=== PATIENT | female | born 1980 | race Caucasian/White ===

== ENCOUNTER → 2016-11-20 | Outpatient (CLI) | payer BC | LOC: LAB 16:39 | PROVIDERS: ATTEND Physician Assistant | DX: G35 Multiple sclerosis (principal); R53.82 Chronic fatigue, unspecified; R89.9 Unspecified abnormal finding in specimens from other organs, systems and tissues | CPT/HCPCS: 36415; 86147 ==

== ENCOUNTER → 2016-11-24 | Outpatient (CLI) | payer BC ==
[2016-11-24 15:59] LABS: BASOPHILS # (AUTO) 0.02 10*3/UL; BASOPHILS % (AUTO) 0.3 % (0-1); EOSINOPHILS % (AUTO) 0.6 % (0-8); HEMATOCRIT 40.7 % (37.0-47.0); IMM GRAN % (AUTO) 0.3 % (0-5); IMM GRAN# (AUTO) 0.02 10*3/UL; LYMPHOCYTES # (AUTO) 0.49 10*3/uL; LYMPHOCYTES % (AUTO) 6.2 % (10-50); MEAN CORPUSCULAR HEMOGLOBIN 31.5 PG (27-31); MEAN CORPUSCULAR HGB CONC 34.4 g/dL (33-37); MEAN PLATELET VOLUME 9.7 FL (7.4-12.2); MONOCYTES # (AUTO) 0.78 10*3/UL (0.3-0.8); MONOCYTES % (AUTO) 9.9 % (5-15); NEUTROPHILS # (AUTO) 6.55 10*3/UL; NEUTROPHILS % (AUTO) 82.7 % (50-80); RDW COEFFICIENT OF VARIATION 13.1 % (11.5-14.5); RED BLOOD COUNT 4.45 10^6/uL (4.20-5.40); WHITE BLOOD COUNT 7.91 10^3/uL (4.8-10.8)
[2016-11-24 16:02] LABS: BILIRUBIN,URINE NEGATIVE (NEG); CLARITY,URINE Slightly Clo (CLEAR); GLUCOSE, URINE (UA) NEGATIVE (NEG); LEUKOCYTE ESTERASE ,URINE SMALL (NEG); NITRATE,URINE NEGATIVE (NEG); OCCULT BLOOD,URINE NEGATIVE (NEG); PROTEIN,URINE NEGATIVE (NEG); UROBILINOGEN,URINE 0.2 mg/dL (0.2)
[2016-11-24 16:06] LABS: URINE SAMPLE TYPE VOIDED SPECIMEN
[2016-11-24 16:07] LABS: BACTERIA,URINE MANY; SQUAMOUS EPITHELIAL CELL,UR FEW
[2016-11-24 16:15] LABS: PLATELET MORPHOLOGY COMMENT NORMAL MORPHOLOGY (NORM)
== END ==
LOC: LAB 12:24
PROVIDERS: ATTEND Physician Assistant
DX: G35 Multiple sclerosis (principal)
CPT/HCPCS: 36415; 81001; 85025

== ENCOUNTER 2016-12-21 07:05 | Emergency (ER) | payer BC ==
[2016-12-21 07:38] VITALS: RESP 14; TEMP 97
[2016-12-21 07:39] LABS: BASOPHILS # (AUTO) 0.01 10*3/UL; BASOPHILS % (AUTO) 0.1 % (0-1); EOSINOPHILS % (AUTO) 0.2 % (0-8); HEMATOCRIT 40.3 % (37.0-47.0); HEMOGLOBIN 13.9 g/dL (12.0-16.0); IMM GRAN % (AUTO) 0.7 % (0-5); IMM GRAN# (AUTO) 0.08 10*3/UL; LYMPHOCYTES # (AUTO) 0.31 10*3/uL; LYMPHOCYTES % (AUTO) 2.8 % (10-50); MEAN CORPUSCULAR HEMOGLOBIN 32.7 PG (27-31); MEAN CORPUSCULAR HGB CONC 34.5 g/dL (33-37); MEAN PLATELET VOLUME 8.7 FL (7.4-12.2); MONOCYTES # (AUTO) 0.63 10*3/UL (0.3-0.8); MONOCYTES % (AUTO) 5.6 % (5-15); NEUTROPHILS # (AUTO) 10.15 10*3/UL; NEUTROPHILS % (AUTO) 90.6 % (50-80); RED BLOOD COUNT 4.25 10^6/uL (4.20-5.40)
[2016-12-21 07:53] LABS: PROTHROMBIN TIME 9.6 secs (9.7-11.4)
[2016-12-21 07:56] LABS: ASPARTATE AMINO TRANSFERASE 23 IU/L (8-39); BILIRUBIN,TOTAL 0.7 mg/dL (0.3-1.2); BLOOD UREA NITROGEN 12 mg/dL (7-22); CALCIUM 9.4 mg/dL (8.7-10.7); CHLORIDE 102 meq/L (98-112); CREATININE 0.6 mg/dL (0.50-1.20); EST GLOMERULAR FILTRATION > 60 (>60 ml/min/1.73m(2)); GLUCOSE 101 mg/dL (78-110); POTASSIUM 3.7 meq/L (3.8-5.2); SODIUM 139 meq/L (135-145); TOTAL PROTEIN 7.1 g/dL (6.1-8.0)
[2016-12-21 07:57] LABS: PLATELET MORPHOLOGY COMMENT NORMAL MORPHOLOGY (NORM)
--- NOTE | 2016-12-21 08:18 | PDOC ---
Lower Extremity Problem HPI - General Chief Complaint: Integumentary Stated Complaint: painful/tender, bruises to b/l arms/legs, no injur Date Seen by Provider: 12/21/16 Time Seen by Provider: 07:10 Source: POSITIVE: Patient Exam Limitations: POSITIVE: No limitations Nurse's Notes Reviewed & Considered: Yes - History of Present Illness Initial Comments: The patient is a 36-year-old female who presents to the emergency department with left calf pain. She states for the past several days she's had pain in her left calf which is worse when she is up and walking. She also has noticed some increased swelling in her left leg. This morning she also noted several bruises to the left side of her thigh as well as some bruises on her arms. She denies any recent injury. She does have a history of MS and is currently on a prednisone taper which has been ongoing for the past 5 weeks. She denies any prior history of blood clots and is not taking any blood thinner medications. She denies any chest pain. - Patient Home Medications Home Medications: Home Medications Albuterol Sulfate [Proair Hfa] 2 puff INH Q4-6H #1 inh 11/22/15 Gabapentin 300 mg PO TID 06/02/16 Nortriptyline Cap [Pamelor Cap] 75 mg PO DAILY 06/02/16 Cholecalciferol (Vitamin D3) [Vitamin D3] 1 cap PO DAILY cap 09/15/16 Cyanocobalamin (Vitamin B-12) [Vitamin B12] 2,500 mcg PO DAILY tab 09/15/16 Fingolimod HCl [Gilenya] 0.5 mg PO DAILY cap 09/15/16 Ketorolac Tromethamine [Sprix] 1 each NS PRN PRN spray 09/15/16 Sumatriptan 5 mg IN PRN PRN spr 09/15/16 Dexamethasone 2 mg PO DAILY 12/21/16 Fish Oil/Om-3/Dl-E/FA/B6-B12 [Cardiovid Plus Softgel] 1 cap PO DAILY 12/21/16 Flaxseed Oil [Flax Seed Oil] 1,000 mg PO DAILY 12/21/16 Methylphenidate HCl 5 mg PO BID 12/21/16 Pantoprazole Sodium 40 mg PO DAILY 12/21/16 - Patient Allergies Allergies/Adverse Reactions: Allergies Allergy/AdvReac Type Severity Reaction Status Date / Time BROMATINE Allergy Severe SHORTNESS Uncoded 12/21/16 07:17 OF BREATH Reglan AdvReac Intermediate ITCHING Uncoded 12/21/16 07:17 Past Medical History - heen HEENT History: Denies History Additional HEENT History: near sighted, wears glasses Cardiovascular History: Denies History Respiratory History: Other (please comment) Additional Respiratory History: "ASTHMATIC BRONCHITIS" Gastrointestinal History: Irritable Bowel Syndrome Genitourinary History: Kidney Stones Additional Genitourinary History: 3 YEARS AGO Endocrine History: Denies History Musculoskeletal History: Fibromyalgia, Back Pain, Joint Pain Prosthesis or Implant: Yes (L-4-L5) Additional Musculoskeletal History: COMPLEX REGIONAL PAIN SYNDROME Neurological History: Migraines, Motion Sickness Blood Disorders: Denies History Psychiatric History: Denies History History of Sexually Transmitted Diseases: No Female Reproductive History: Denies History Additional Female Reproductive History: TUBAL LIGATION Cancer History: Skin Cancer Treatment / Date(s) of Treatment: SURG REMOVAL In Past Year Been Physically Harmed or Verbally Threatened: No History of MDRO: No History of Other Communicable Diseases: No Tobacco Use: Never Smoker Alcohol Use: Occasionally Substance Use Type: None Previous Surgical History: Yes Type / Date of Surgery: TONSILLECTOMY. L4-L5 FUSION. TUBAL, ABLATION. WISDOM TEETH. R ANKLE Anesthesia Reactions: Yes (PONV) Malignant Hyperthermia: No Significant Family History: No pertinent family hx Past Medical History Reviewed: Reviewed - No Changes ROS - Limitations ROS Limitations: No Limitations Constitution: DENIES: Chills, Fever Cardiovascular: DENIES: Chest Pain, Heart Palpitations Respiratory: REPORTS: Shortness Of Breath, Other (Has a history of asthma) Musculoskeletal: REPORTS: Calf Pain (Left-sided) Lower Ext Problem Exam - General Appearance General Appearance: POSITIVE: Alert, Cooperative, No Acute Distress - Extremities Lower Extremity: POSITIVE: Other (Examination of the left lower extremity reveals tenderness to the calf with positive Homans sign, she does have some small bruises noted to the lateral aspect of her thigh on the left leg, small bruises noted to the arms as well) Vascular: POSITIVE: No Vascular Compromise - Neuro / Psych Neuro/Psych: POSITIVE: Sensation Normal, Motor Normal - Skin Skin: POSITIVE: Other (Some petechial-appearing rashes some both shins) - HEENT HEENT: POSITIVE: Head Inspection Nml - Respiratory / CVS Respiratory / CVS: POSITIVE: No Respiratory Distress, Breath Sounds Normal, Regular Rate/Rhythm, Heart Sounds Normal Lower Ext Problem Progress - Results Reviewed by me Xrays/CTs/US Reviewed by me: Yes Radiology Findings: Ultrasound of the left lower extremity is negative for DVT, there is a fluid collection in the popliteal region consistent with Rojas's cyst. Lab Results Reviewed: Yes Lab Results:: Laboratory Results 12/21/16 Range/Units 07:34 WBC 11.20 H (4.8-10.8) 10^3/uL RBC 4.25 (4.20-5.40) 10^6/uL Hgb 13.9 (12.0-16.0) g/dL Hct 40.3 (37.0-47.0) % MCV 94.8 (81-99) FL MCH 32.7 H (27-31) PG MCHC 34.5 (33-37) g/dL RDW Std Deviation 46.9 (39-50) fL RDW Coeff of Maddie 14.0 (11.5-14.5) % Plt Count 182 (140-350) 10*3/uL MPV 8.7 (7.4-12.2) FL Immature Gran % (Auto) 0.7 (0-5) % Neut % (Auto) 90.6 H (50-80) % Lymph % (Auto) 2.8 L (10-50) % [place] % (Auto) 5.6 (5-15) % Eos % (Auto) 0.2 (0-8) % Baso % (Auto) 0.1 (0-1) % Immature Gran # (Auto) 0.08 10*3/UL Neut # (Auto) 10.15 10*3/UL Lymph # (Auto) 0.31 10*3/uL [place] # (Auto) 0.63 (0.3-0.8) 10*3/UL Eos # (Auto) 0.02 10*3/UL Baso # (Auto) 0.01 10*3/UL WBC Morphology Comment Normal morphology (NORM) Plt Morphology Comment Normal morphology (NORM) RBC Morph Comment Normal morphology (NORM) PT 9.6 L (9.7-11.4) secs INR 0.93 (0.00-5.90) N/A APTT 26.5 (22.6-31.3) SECS Sodium 139 (135-145) meq/L Potassium 3.7 L (3.8-5.2) meq/L Chloride 102 (98-112) meq/L Carbon Dioxide 27 (23-33) meq/L Anion Gap 10 (5-20) BUN 12 (7-22) mg/dL Creatinine 0.6 (0.50-1.20) mg/dL Estimated GFR > 60 (>60 ml/min/1.73m(2)) BUN/Creatinine Ratio 20.00 (6-20) Glucose 101 (78-110) mg/dL Calculated Osmolality 287.0 (267-292) mOsm/kg Calcium 9.4 (8.7-10.7) mg/dL Total Bilirubin 0.7 (0.3-1.2) mg/dL AST 23 (8-39) IU/L ALT 92 H (9-52) IU/L Alkaline Phosphatase 44 (38-126) IU/L Total Protein 7.1 (6.1-8.0) g/dL Albumin 4.0 (3.5-4.8) g/dL Globulin 3.0 (2.50-4.10) g/dL Albumin/Globulin Ratio 1.30 (1.3-2.0) mg/g - Patient's Progress MDM / ED Course: Her ultrasound is negative for DVT however does reveal evidence of a Rojas's cyst which is the likely cause of her left calf pain and swelling. Her blood work was also reassuring with normal platelets, coagulation factors and unremarkable blood work otherwise. The bruising that she is experiencing is likely secondary to her recent course of prednisone. The pain appears to be related to a Rojas's cyst rather than DVT. She was advised to try ibuprofen 4- 600 mg as needed for pain/swelling. She will take this with food. She is advised follow-up with orthopedic surgery if continued pain or swelling. She will return to the emergency room if any worsening or change in symptoms. - Consult Counseled: POSITIVE: Patient, RE: Lab Results, RE: Radiology Results, RE: DX, RE : Need for F/U Patient Care Time - Estimated PCT Patient Care Time (In Minutes): 20 Vital Signs - Recent Vital Signs Vital Signs: Vital Signs (Last 8 hours) Temp Pulse Resp BP Pulse Ox 12/21/16 07:05 97.0 F 86 14 142/88 99 - VS Reviewed Vital Signs Reviewed: Yes Discharge Clinical Impression: Bakers cyst Condition: Stable Patient Instructions Given at Discharge: Bakers Cyst (ED) Additional Instructions: The ultrasound of your left leg did not reveal any evidence of blood clot. There was however a fluid collection in the upper calf behind the knee consistent with a Rojas's cyst. This is the likely cause of your pain and swelling. Recommend ibuprofen 4-600 mg every 6 hours as needed for pain/ swelling. Take this with food. Your blood work revealed normal blood counts and coagulation factors. The bruising that you are experiencing is likely related to the recent prednisone course. Return to the emergency room if any worsening or change in symptoms. Recommend follow-up with orthopedic surgery regarding the Rojas's cyst if continued pain or swelling. Follow Up With: DENILSON GALDAMEZ [Primary Care Provider] -
--- NOTE | 2016-12-21 09:16 | DI ---
US UP/LOW EXT VEINS U/L OR LTD,12/21/2016 7:21 AM: Clinical History: Left calf pain. Previous Exam: None at this facility. Findings: Multiple grayscale and color Doppler sonographic images are obtained of the veins of the left lower e xtremity demonstrating complete coaptation upon graded compression throughout. There is no evidence o f echogenic thrombus. There is normal venous waveforms with normal respiratory variation and augmenta tion. There is a Rojas's cyst noted within the posterior knee. Impression: No evidence of deep venous thrombosis. 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
== END 2016-12-21 08:46 | disposition home or self-care (01) ==
LOC: ER 07:05
DX: M71.22 Synovial cyst of popliteal space [Baker], left knee (principal); G35 Multiple sclerosis
CPT/HCPCS: 36415; 80053; 85025; 85610; 85730; 93971; 99283

== ENCOUNTER → 2016-12-21 | Outpatient (CLI) | payer BC ==
--- NOTE | 2016-12-21 19:10 | DI ---
MRI BRAIN W/WO CN,12/21/2016 12:52 PM: Clinical History: Multiple sclerosis. Previous Exam: July 15, 2016. Findings: Multiplanar MR images are obtained through the brain following an MS protocol with and without gadoli nium contrast. Ventricles and other CSF containing spaces are normal and symmetric. There is no abnormal enhancement . The intraorbital structures are unremarkable. The paranasal sinuses are also unremarkable. There are multiple areas of increased FLAIR and T2 signal in the pericallosal regions in a flamelike configuration. There is also some increased T2 and FLAIR signal involving the body of the corpus call osum as well. These areas were only imaged on FLAIR images on the prior exam. The areas of increased FLAIR signal on today's exam are stable when. Prior exam although technique differences exist which m akes direct comparison somewhat difficult. There is also a large lesion involving the medulla oblonga ta anteriorly. This demonstrated increased FLAIR on the prior exam and also today. There is no enhancing mass and there is no enhancement of these FLAIR hyperintensities. There is no abnormally restricted diffusion. Impression: Multiple areas of increased FLAIR and T2 signal predominantly in the pericallosal white matter with a large lesion in the medulla oblongata without any enhancement to suggest active plaque formation.
== END ==
LOC: MRI 12:47
PROVIDERS: ATTEND Physician Assistant
DX: G35 Multiple sclerosis (principal); R20.0 Anesthesia of skin
CPT/HCPCS: 70553; A9579

== ENCOUNTER → 2016-12-23 | Outpatient (CLI) | payer BC ==
[~2016-12-23] MED LIST: LIDOCAINE W/ SODIUM BICARB 0.5 ML SYR SUBD ONE; NORMAL SALINE 10 ML SYRINGE FLUSH IVP ONE
--- NOTE | 2016-12-23 20:42 | DI ---
MRI CERVICAL SPINE W/WO CN,12/23/2016 12:14 PM: Clinical History: Arm and hand numbness and history of MS. Previous Exam: July 24, 2016 Findings: Multiplanar MR images are obtained through the cervical spine both before and after the intravenous a dministration of 20 mL of gadolinium contrast. Bony alignment is anatomic. No fractures are seen. Vertebral body height is preserved. Intervertebral disc height is also preserved. Visualized portions of the posterior fossa are unremarkable. The prevertebral soft tissues are unremarkable. Evaluation of the spinal cord demonstrates a stable lesion within the anterior abdominal oblongata wh ich appears to be slightly larger than on the examination from July however, there is no associa jose enhancement. There are also multiple other lesions within the cervical spine with one at the C2/3 level involving the left half of the spinal cord. This is unchanged. There is also stable heterogeneous increased sig nal involving the posterior and right spinal cord at the C3/4 level extending to the C4/5 level also unchanged. There is posterior right increased T2 signal of the spinal cord at the C5/6 level. There i s also some increased signal involving the right cord at the C6/7 level. Impression: 1. Diffuse heterogeneous increased T2 and FLAIR signal throughout the cervical spine unchanged when c ompared with the prior exam. 2. Slight interval increase in the size of the lesion within the anterior medulla oblongata without a ny enhancement.
== END ==
LOC: MRI 12:05
PROVIDERS: ATTEND Physician Assistant
DX: G35 Multiple sclerosis (principal); R20.0 Anesthesia of skin; G95.89 Other specified diseases of spinal cord
CPT/HCPCS: 72156; A9579

== ENCOUNTER → 2017-01-25 | Outpatient (CLI) | payer BC ==
--- NOTE | 2017-01-26 16:06 | DI ---
XR SHOULDER MIN 2VW,01/25/2017 10:54 AM: Clinical History: Left shoulder pain. Previous Exam: May 06, 2015 Findings: 3 views of the left shoulder are obtained, and demonstrate anatomic alignment without fractures. The adjacent left lung and chest wall are unremarkable. Impression: Normal left shoulder.
== END ==
LOC: RAD 10:45
PROVIDERS: ATTEND Obstetrics & Gynecology Gynecology
DX: M25.512 Pain in left shoulder (principal)
CPT/HCPCS: 73030

== ENCOUNTER 2017-01-26 17:38 | Emergency (ER) | payer BC ==
[2017-01-26] MEDS ORDERED: NORMAL SALINE 10 ML SYRINGE FLUSH IVP PRN (18:04)
[2017-01-26] MEDS ORDERED: KETOROLAC 30 MG/1 ML VIAL IVP ONE (18:04)
[2017-01-26] MEDS ORDERED: Sodium Chloride 0.9% 1,000 ML PRIMARY IV ONE (18:04)
[2017-01-26] MEDS ORDERED: Metoclopramide Inj 10 MG/2 ML VIAL IVP ONE (18:06)
[2017-01-26] MEDS ORDERED: diphenhydrAMINE 50 MG/1 ML VIAL IVP ONE (18:07)
[2017-01-26] MEDS ORDERED: ONDANSETRON 4 MG/2 ML VIAL IVP ONE ×2 (18:07→19:31)
[2017-01-26] MEDS ORDERED: ONDANSETRON 4 MG/2 ML VIAL ONE (18:23)
[2017-01-26 18:28] LABS: BASOPHILS # (AUTO) 0.02 10*3/UL; BASOPHILS % (AUTO) 0.2 % (0-1); EOSINOPHILS # (AUTO) 0.06 10*3/UL; EOSINOPHILS % (AUTO) 0.7 % (0-8); HEMATOCRIT 40.5 % (37.0-47.0); LYMPHOCYTES # (AUTO) 0.83 10*3/uL; MEAN CORPUSCULAR HEMOGLOBIN 31.6 PG (27-31); MEAN CORPUSCULAR HGB CONC 34.6 g/dL (33-37); MEAN CORPUSCULAR VOLUME 91.4 FL (81-99); MEAN PLATELET VOLUME 9.6 FL (7.4-12.2); MONOCYTES # (AUTO) 0.85 10*3/UL (0.3-0.8); MONOCYTES % (AUTO) 9.4 % (5-15); NEUTROPHILS # (AUTO) 7.27 10*3/UL; NEUTROPHILS % (AUTO) 80.2 % (50-80); RED BLOOD COUNT 4.43 10^6/uL (4.20-5.40)
[2017-01-26 18:30] LABS: PLATELET MORPHOLOGY COMMENT NORMAL MORPHOLOGY (NORM); RBC MORPHOLOGY COMMENT NORMAL MORPHOLOGY (NORM); WBC MORPHOLOGY COMMENT NORMAL MORPHOLOGY (NORM)
[2017-01-26 18:36] VITALS: TEMP 96.7
[2017-01-26 18:37] LABS: BLOOD UREA NITROGEN 7 mg/dL (7-22); BUN/CREATININE RATIO 11.66 (6-20); CALCIUM 9.6 mg/dL (8.7-10.7); EST GLOMERULAR FILTRATION > 60 (>60 ml/min/1.73m(2)); LIPASE 157 IU/L (23-300); SERUM ALBUMIN 4.4 g/dL (3.5-4.8)
[2017-01-26 18:50] LABS: BILIRUBIN,URINE NEGATIVE (NEG); COLOR,URINE YELLOW; GLUCOSE, URINE (UA) NEGATIVE (NEG); NITRATE,URINE NEGATIVE (NEG); OCCULT BLOOD,URINE NEGATIVE (NEG); UROBILINOGEN,URINE 0.2 EU/dL (0.2)
[2017-01-26 18:51] LABS: CLARITY,URINE CLEAR (CLEAR); PROTEIN,URINE NEGATIVE (NEG); URINE SAMPLE TYPE CATH SPECIMEN
[2017-01-26] MEDS ORDERED: HYDROmorphone 2 MG/1 ML IVP ONE (19:31)
--- NOTE | 2017-01-26 19:51 | DI ---
CT ABD W/CN AND PELVIS W/CN,01/26/2017 6:05 PM: Clinical History: Abdominal pain Previous Exam: November 08, 2015 Findings: Multiple helically acquired CT images are obtained through the abdomen and pelvis following the admin istration of intravenous contrast, and demonstrate a normal appendix. Postsurgical changes are seen within the posterior lumbar spine consistent with transpedicular fixati on and laminectomies. The liver demonstrates diffuse fatty infiltration. The gallbladder is normal. The spleen, pancreas and adrenals are unremarkable. The ureters are normal in course and caliber with orthotopic insertion on the urinary bladder. The uterus and ovaries are unremarkable. There is a small nabothian cyst noted within the cervix. There is no mesenteric nor retroperitoneal lymphadenopathy. There is no free air nor free fluid. Visualized portions of the bony pelvis are unremarkable. Impression: 1. Diffuse fatty infiltration of the liver unchanged from the prior exam. 2. No acute intra-abdominal pathology.
[2017-01-26 23:09] VITALS: RESP 18
--- NOTE | 2017-01-27 03:33 | PDOC ---
General Adult HPI - General Chief Complaint: Abdomen Pain Stated Complaint: R flank/abd pain, n/v/d, headache Date Seen by Provider: 01/26/17 Time Seen by Provider: 17:50 Source: POSITIVE: Patient, Spouse Exam Limitations: POSITIVE: No limitations Nurse's Notes Reviewed & Considered: Yes - History of Present Illness Initial Comment: The patient is a 36-year-old female. She presents to the emergency room complaining of a 1 day history of a migraine headache with associated progressive nausea and some vomiting and diarrhea. She also states that she has had some right sided abdominal and flank pain with some urinary hesitancy. Patient has a history of multiple sclerosis and she completed a course of steroids 4 weeks ago. Long-standing history of migraine headaches. She's had a tubal ligation and a uterine ablation. No fevers or chills. No head trauma. No diarrhea. No dysuria or hematuria. Have you received a tetanus shot in the past 10 years?: Yes Body Location Affected: REPORTS: Head (Migraine headache), Abdomen (Right-sided abdominal discomfort) Timing: REPORTS: Gradual, Getting Worse Duration: >24 hours (Approximately 24 hours) Severity: Moderate Quality: REPORTS: "Pain" Context: DENIES: None, Sitting, Standing, Activity, Emotional stress, Coughing, Recent Trauma, Recent Surgery, Sleep, Rest, Lifting, Turning, Bending, Fall, Near Fall, Other Modifying Factors: improves with: Nothing Similar Symptoms Previously: Yes Recent Care Received: REPORTS: Denies Any Prior Injuries Related to Current Complaint?: No - Patient Home Medications Home Medications: Home Medications Albuterol Sulfate [Proair Hfa] 2 puff INH Q4-6H #1 inh 11/22/15 Gabapentin 600 mg PO TID 06/02/16 Cholecalciferol (Vitamin D3) [Vitamin D3] 1 cap PO DAILY cap 09/15/16 Cyanocobalamin (Vitamin B-12) [Vitamin B12] 2,500 mcg PO DAILY tab 09/15/16 Fingolimod HCl [Gilenya] 0.5 mg PO DAILY cap 09/15/16 Ketorolac Tromethamine [Sprix] 1 each NS PRN PRN spray 09/15/16 Sumatriptan 5 mg IN PRN PRN spr 09/15/16 Methylphenidate HCl 5 mg PO BID 12/21/16 Pantoprazole Sodium 40 mg PO DAILY 12/21/16 Hydroxyzine HCl 25 mg PO DAILY 01/26/17 Zolpidem Tartrate 5 mg PO BEDTIME 01/26/17 - Patient Allergies Allergies/Adverse Reactions: Allergies Allergy/AdvReac Type Severity Reaction Status Date / Time BROMATINE Allergy Severe SHORTNESS Uncoded 01/26/17 17:58 OF BREATH Reglan AdvReac Intermediate ITCHING Uncoded 01/26/17 17:58 Past Medical History - heen HEENT History: Denies History Additional HEENT History: near sighted, wears glasses Cardiovascular History: Denies History Respiratory History: Other (please comment) Additional Respiratory History: "ASTHMATIC BRONCHITIS" Gastrointestinal History: Irritable Bowel Syndrome Genitourinary History: Kidney Stones Additional Genitourinary History: 3 YEARS AGO Endocrine History: Denies History Musculoskeletal History: Fibromyalgia, Back Pain, Joint Pain Prosthesis or Implant: Yes (L-4-L5 FUSION) Additional Musculoskeletal History: COMPLEX REGIONAL PAIN SYNDROME, MS Neurological History: Migraines, Motion Sickness Blood Disorders: Denies History Psychiatric History: Denies History History of Sexually Transmitted Diseases: No Female Reproductive History: Other (please comment) Additional Female Reproductive History: TUBAL LIGATION, UTERINE ABLATION Cancer History: Skin Cancer Treatment / Date(s) of Treatment: SURG REMOVAL In Past Year Been Physically Harmed or Verbally Threatened: No (PER PATIENT) History of MDRO: No History of Other Communicable Diseases: No Tobacco Use: Never Smoker Alcohol Use: Rarely Substance Use Type: None Previous Surgical History: Yes Type / Date of Surgery: TONSILLECTOMY. L4-L5 FUSION. TUBAL, UTERINE ABLATION. WISDOM TEETH. R ANKLE Anesthesia Reactions: Yes (PONV) Malignant Hyperthermia: No Family History of Malignant Hyperthermia: No Significant Family History: No pertinent family hx Past Medical History Reviewed: Reviewed - No Changes ROS - Limitations ROS Limitations: No Limitations Constitution: REPORTS: Denies Symptoms Cardiovascular: REPORTS: Denies Cardiac Symptoms Respiratory: REPORTS: Denies Resp Symptoms Neurological: REPORTS: Headache (Typical of her previous episodes of migraines) Gastrointestinal: REPORTS: Abdominal Pain, Nausea, Vomitting, Diarrhea Endocrine: REPORTS: Denies Symptoms Musculoskeletal: REPORTS: Denies MS Symptoms Genitourinary: REPORTS: Denies Symptoms Eyes: REPORTS: Denies Symptoms ENT: REPORTS: Denies Symptoms Skin: REPORTS: Denies Skin Symptoms Lympathic: REPORTS: Denies Lympathic Symptoms Immunologic: POSITIVE: Denies Symptoms Psychiatric: POSITIVE: Denies Psych Symptoms General Adult Exam - General Appearance General Appearance: POSITIVE: Alert, Cooperative, No Acute Distress, No Evidence of Trauma - HEENT HEENT: POSITIVE: Head Inspection Nml, Eyes Inspection Nml, Ears Inspection Nml, Nose Inspection Nml, Oral/Dental Inspect. Nml, Pharynx Inspect. Nml, PERRL, EOMI - Pupils Pupil Size: 4 mm: Bilateral (PERRLA) - Neck Neck: POSITIVE: Normal Inspection, Thyroid Normal - Respiratory Respiratory: POSITIVE: No Respiratory Distress, Breath Sounds Normal, Chest Non- Tender - Cardiovascular Cardiovascular: POSITIVE: Regular Rate & Rhythm, No Murmur, No Gallop, PMI Normal Peripheral Pulses: Radial (R): 2+, Radial (L): 2+ - Abdomen Abdomen: Soft: (All Quadrants), Normal Bowel Sounds: (All Quadrants), Denies Tenderness: (LLQ), (LUQ), No Splenomegaly: (All Quadrants), No Hepatomegaly: ( All Quadrants), No Guarding: (All Quadrants), No Rebound: (All Quadrants), No Palpable Pulse: (All Quadrants), No Palpabale Mass: (All Quadrants), No Distention: (All Quadrants), No Rigidity: (All Quadrants), Tenderness Noted: ( RUQ), (RLQ) (mild) Additional Abdominal Details: Abdominal examination shows bowel sounds to be active. Mild poorly localized discomfort expressed on firm palpation and percussion of right flank and right half of abdomen. 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 Normal As Tested, Motor Normal, Sensation Normal, 5, 6 Images - Complete Complete: 1 - Area of described abdominal discomfort 2 - Circumferential headache 3 - Circumferential headache General Adult Progress - Results Reviewed by me Xrays/CTs/US Reviewed by me: Yes Discussed with Radiologist: Yes Radiology Findings: CT scan abdomen and pelvis with IV contrast read as normal by radiologist Lab Results Reviewed: Yes Lab Results:: Laboratory Results 01/26/17 01/26/17 Range/Units 18:20 18:40 WBC 9.06 (4.8-10.8) 10^3/uL RBC 4.43 (4.20-5.40) 10^6/uL Hgb 14.0 (12.0-16.0) g/dL Hct 40.5 (37.0-47.0) % MCV 91.4 (81-99) FL MCH 31.6 H (27-31) PG MCHC 34.6 (33-37) g/dL RDW Std Deviation 46.0 (39-50) fL RDW Coeff of Maddie 14.2 (11.5-14.5) % Plt Count 285 (140-350) 10*3/uL MPV 9.6 (7.4-12.2) FL Immature Gran % (Auto) 0.3 (0-5) % Neut % (Auto) 80.2 H (50-80) % Lymph % (Auto) 9.2 L (10-50) % [place] % (Auto) 9.4 (5-15) % Eos % (Auto) 0.7 (0-8) % Baso % (Auto) 0.2 (0-1) % Immature Gran # (Auto) 0.03 10*3/UL Neut # (Auto) 7.27 10*3/UL Lymph # (Auto) 0.83 10*3/uL [place] # (Auto) 0.85 H (0.3-0.8) 10*3/UL Eos # (Auto) 0.06 10*3/UL Baso # (Auto) 0.02 10*3/UL WBC Morphology Comment Normal morphology (NORM) Plt Morphology Comment Normal morphology (NORM) RBC Morph Comment Normal morphology (NORM) Sodium 140 (135-145) meq/L Potassium 3.9 (3.8-5.2) meq/L Chloride 106 (98-112) meq/L Carbon Dioxide 22 L (23-33) meq/L Anion Gap 12 (5-20) BUN 7 (7-22) mg/dL Creatinine 0.6 (0.50-1.20) mg/dL Estimated GFR > 60 (>60 ml/min/1.73m(2)) BUN/Creatinine Ratio 11.66 (6-20) Glucose 101 (78-110) mg/dL Calculated Osmolality 287.0 (267-292) mOsm/kg Calcium 9.6 (8.7-10.7) mg/dL Total Bilirubin 0.7 (0.3-1.2) mg/dL AST 65 H (8-39) IU/L ALT 110 H (9-52) IU/L Alkaline Phosphatase 85 (38-126) IU/L Total Protein 7.8 (6.1-8.0) g/dL Albumin 4.4 (3.5-4.8) g/dL Globulin 3.3 (2.50-4.10) g/dL Albumin/Globulin Ratio 1.30 (1.3-2.0) mg/g Amylase 60 (30-110) U/L Lipase 157 (23-300) IU/L Serum HCG, Qual Negative Ur Collection Type Cath specimen Urine Color Yellow Urine Clarity Clear (CLEAR) Urine pH 6.0 (5.0-8.5) Ur Specific [place] 1.015 (1.005-1.030) Urine Protein Negative (NEG) mg/dl Urine Glucose (UA) Negative (NEG) mg/dL Urine Ketones Negative (NEG) Urine Occult Blood Negative (NEG) Urine Nitrate Negative (NEG) Urine Bilirubin Negative (NEG) Urine Urobilinogen 0.2 (0.2) EU/dL Ur Leukocyte Esterase Negative (NEG) Ur Culture Indicated? Culture not set - Patient's Progress Pain Medication Addressed: POSITIVE: Yes (Headache treated with a liter of normal saline, 30 mg of ketorolac IV, Reglan 10 mg IV, diphenhydramine 50 mg IV , with partial relief of headache. Patient remained nauseous. Patient then given 2 mg of Dilaudid IV and 4 mg of Zofran IV and patient feels much better on discharge.) Re-Examine Time: 20:15 Re-Examine Comment: Headache much improved. Abdomen benign. Status: POSITIVE: Improved, Re-Examined Antibiotics Given: No - Consult Counseled: POSITIVE: Patient, Family, RE: Lab Results, RE: Radiology Results, RE : DX, RE: Need for F/U Patient Care Time - Estimated PCT Patient Care Time (In Minutes): 50 Vital Signs - Recent Vital Signs Vital Signs: Vital Signs (Last 8 hours) Pulse Resp BP Pulse Ox 01/26/17 20:38 82 18 130/90 94 - VS Reviewed Vital Signs Reviewed: Yes Discharge Clinical Impression: Migraine, Abdominal pain Discharge Disposition: Discharged to Home Condition: Stable Patient Instructions Given at Discharge: Migraine Headache (ED), Acute Abdominal Pain (ED) Additional Instructions: I believe you're headache is recurrence of your chronic recurring migraine headaches. I'm glad you're feeling better. Do not drive for 24 hours. Go home and rest. Your blood and urine tests, as well as the CT scan of your abdomen and pelvis are normal and I see no serious sources for abdominal discomfort; I see no evidence of stones or urinary tract infection. Clear liquid diet for 12 hours. Tylenol for mild discomfort. Return here anytime if condition worsens. Follow-up with your primary care providers. Follow Up With: DENILSON GALDAMEZ [Primary Care Provider] - (Instructions as above. Follow-up with your primary care providers. Return here anytime if condition worsens.)
[2017-01-27] MEDS ORDERED: NORMAL SALINE 10 ML SYRINGE FLUSH IVP PRN (04:22)
== END 2017-01-26 20:38 | disposition home or self-care (01) ==
LOC: ER 17:38
DX: G43.009 Migraine without aura, not intractable, without status migrainosus (principal); R11.2 Nausea with vomiting, unspecified; R19.7 Diarrhea, unspecified; R10.84 Generalized abdominal pain
CPT/HCPCS: 74177; 80053; 81003; 82150; 83690; 84703; 85025; 96361; 96374; 96375; 96376; 99283 ×2; J1200; J1885; J1170; J2405; J2765; J7030

== ENCOUNTER → 2017-02-04 | Outpatient (CLI) | payer BC ==
--- NOTE | 2017-02-04 16:01 | DI ---
MRI THORACIC SPINE SCAN WITHOUT AND WITH IV CONTRAST, 02/04/2017 12:33 PM: Clinical History: Multiple sclerosis. There is seizures. Previous Exam: None. Technique: Sagittal T1 and T2 weighted, PD, FLAIR, and T1-weighted fat saturated; axial T1 and T2-jyoti ghted. Postcontrast sagittal and axial T1-weighted and fat-saturated T1-weighted scans. 20 mL of ProH ance (279.3 mg per mL) was injected IV. The vertebral bodies are of normal height and size. The disc spaces are of normal height and signal p attern. The thoracic cord and the conus medullaris are normal. There are no significant extradural le sions. There are no intradural extramedullary or intramedullary lesions. No enhancing lesion is ident ified. Readin. Normal pre-and postcontrast MRI scan of the thoracic spine. 2. There is no hyperintense lesion seen on the FLAIR sequence within the cord. There is no enhancing lesion identified within the cord itself.
== END ==
LOC: MRI 12:14
PROVIDERS: ATTEND Physician Assistant
DX: G35 Multiple sclerosis (principal); R20.2 Paresthesia of skin
CPT/HCPCS: 72157; A9579

== ENCOUNTER → 2017-02-08 | Outpatient (CLI) | payer BC ==
[2017-02-11 09:27] LABS: IGA SERUM 273 mg/dL (61 - 356); TISSUE TRANSGLUT AB IGA <1.2 U/mL (())
== END ==
LOC: LAB 17:49
PROVIDERS: ATTEND Obstetrics & Gynecology Gynecology
DX: R53.83 Other fatigue (principal); G35 Multiple sclerosis; R42 Dizziness and giddiness; R14.0 Abdominal distension (gaseous); R11.0 Nausea
CPT/HCPCS: 36415; 82784; 83516

== ENCOUNTER → 2017-02-20 | Outpatient (CLI) | payer BC ==
[2017-02-20 18:02] LABS: BASOPHILS # (AUTO) 0.02 10*3/UL; BASOPHILS % (AUTO) 0.2 % (0-1); EOSINOPHILS # (AUTO) 0.07 10*3/UL; EOSINOPHILS % (AUTO) 0.9 % (0-8); HEMATOCRIT 39.7 % (37.0-47.0); HEMOGLOBIN 13.5 g/dL (12.0-16.0); LYMPHOCYTES # (AUTO) 0.72 10*3/uL; MEAN CORPUSCULAR HEMOGLOBIN 31.5 PG (27-31); MEAN CORPUSCULAR VOLUME 92.5 FL (81-99); MEAN PLATELET VOLUME 9.5 FL (7.4-12.2); MONOCYTES % (AUTO) 9.8 % (5-15); NEUTROPHILS # (AUTO) 6.56 10*3/UL; NEUTROPHILS % (AUTO) 80.2 % (50-80); PLATELET MORPHOLOGY COMMENT NORMAL MORPHOLOGY (NORM); RBC MORPHOLOGY COMMENT NORMAL MORPHOLOGY (NORM); RED BLOOD COUNT 4.29 10^6/uL (4.20-5.40); WBC MORPHOLOGY COMMENT NORMAL MORPHOLOGY (NORM)
[2017-02-20 18:40] LABS: BLOOD UREA NITROGEN 10 mg/dL (7-22); BUN/CREATININE RATIO 16.66 (6-20); CALCIUM 9.3 mg/dL (8.7-10.7); EST GLOMERULAR FILTRATION > 60 (>60 ml/min/1.73m(2)); SERUM ALBUMIN 4.1 g/dL (3.5-4.8)
[2017-02-23 13:49] LABS: RHEUMATOID FACTOR <15 IU/mL (<15)
== END ==
LOC: LAB 17:36
PROVIDERS: ATTEND Physician Assistant
DX: G35 Multiple sclerosis (principal); M25.562 Pain in left knee; M25.561 Pain in right knee; M25.542 Pain in joints of left hand; M25.541 Pain in joints of right hand
CPT/HCPCS: 36415; 80053; 85025; 86039; 86147; 86431

== ENCOUNTER → 2017-03-04 | Outpatient (CLI) | payer BC ==
[2017-03-05 13:56] LABS: INTERPRETATION SEE COMMENTS (())
== END ==
LOC: LAB 12:13
PROVIDERS: ATTEND Physician Assistant
DX: G35 Multiple sclerosis (principal); M25.542 Pain in joints of left hand; M25.541 Pain in joints of right hand
CPT/HCPCS: 85610; 85613; 85730; 86038

== ENCOUNTER 2017-04-11 14:34 | Emergency (ER) | payer BC ==
[2017-04-11] MEDS ORDERED: NORMAL SALINE 10 ML SYRINGE FLUSH IVP PRN (15:05)
[2017-04-11] MEDS ORDERED: Sodium Chloride 0.9% 1,000 ML PRIMARY IV ONE (15:05)
[2017-04-11] MEDS ORDERED: diphenhydrAMINE 50 MG/1 ML VIAL IVP ONE (15:06)
[2017-04-11 15:15] LABS: BASOPHILS # (AUTO) 0.02 10*3/UL; BASOPHILS % (AUTO) 0.3 % (0-1); EOSINOPHILS # (AUTO) 0.05 10*3/UL; EOSINOPHILS % (AUTO) 0.6 % (0-8); HEMATOCRIT 43.5 % (37.0-47.0); HEMOGLOBIN 14.9 g/dL (12.0-16.0); LYMPHOCYTES # (AUTO) 0.68 10*3/uL; MEAN CORPUSCULAR HEMOGLOBIN 30.3 PG (27-31); MEAN CORPUSCULAR HGB CONC 34.3 g/dL (33-37); MEAN CORPUSCULAR VOLUME 88.6 FL (81-99); MEAN PLATELET VOLUME 9.9 FL (7.4-12.2); MONOCYTES # (AUTO) 0.83 10*3/UL (0.3-0.8); MONOCYTES % (AUTO) 10.5 % (5-15); NEUTROPHILS % (AUTO) 79.7 % (50-80); PLATELET MORPHOLOGY COMMENT NORMAL MORPHOLOGY (NORM); RBC MORPHOLOGY COMMENT NORMAL MORPHOLOGY (NORM); RED BLOOD COUNT 4.91 10^6/uL (4.20-5.40); WBC MORPHOLOGY COMMENT NORMAL MORPHOLOGY (NORM)
[2017-04-11 15:25] LABS: BLOOD UREA NITROGEN 9 mg/dL (7-22); BUN/CREATININE RATIO 12.85 (6-20); CALCIUM 9.4 mg/dL (8.7-10.7); EST GLOMERULAR FILTRATION > 60 (>60 ml/min/1.73m(2)); SERUM ALBUMIN 4.5 g/dL (3.5-4.8)
[2017-04-11] MEDS ORDERED: KETOROLAC 15 MG/1 ML VIAL IVP ONE (15:37)
[2017-04-11] MEDS ORDERED: HYDROXYZINE PAMOATE 25 MG CAPSULE PO ONE (16:06)
[2017-04-11 16:33] VITALS: RESP 15; TEMP 98
--- NOTE | 2017-04-11 16:35 | PDOC ---
General Adult HPI - General Chief Complaint: Upper Extremity Problem/Injury Stated Complaint: BURNING HANDS AFTER USING WOOLITE FABRIC NORMALIZER Date Seen by Provider: 04/11/17 Time Seen by Provider: 14:50 Source: POSITIVE: Patient Exam Limitations: POSITIVE: No limitations Nurse's Notes Reviewed & Considered: Yes - History of Present Illness Initial Comment: The patient is a 37-year-old female who presents to the emergency department with burning pain and itching to both of her hands. She states that she was using a woolite cleaning product when she had onset of burning and itching in her hands and fingers, she states that her hands appeared white in color. She states that she washed her hands at least 6 times at home however the symptoms did not seem to be resolving. She denies any generalized itching, chest pain, shortness of breath or any other associated symptoms. She does have a history of MS as well as a history of migraines. She does have a mild headache now. Have you received a tetanus shot in the past 10 years?: Yes - Patient Home Medications Home Medications: Home Medications Albuterol Sulfate [Proair Hfa] 2 puff INH Q4-6H #1 inh 11/22/15 Gabapentin 600 mg PO TID 06/02/16 Cholecalciferol (Vitamin D3) [Vitamin D3] 5 cap PO DAILY cap 09/15/16 Cyanocobalamin (Vitamin B-12) [Vitamin B12] 2,500 mcg PO DAILY tab 09/15/16 Fingolimod HCl [Gilenya] 0.5 mg PO DAILY cap 09/15/16 Ketorolac Tromethamine [Sprix] 1 each NS PRN PRN spray 09/15/16 Sumatriptan 5 mg IN PRN PRN spr 09/15/16 Methylphenidate HCl 5 mg PO BID 12/21/16 Hydroxyzine HCl 25 mg PO DAILY 01/26/17 Zolpidem Tartrate 5 mg PO BEDTIME 01/26/17 Biotin 1 cap PO QD cap 02/15/17 Flaxseed Oil [Flaxseed] 1 cap PO QD cap 02/15/17 [place]-3/Dha/Epa/Fish Oil [Fish Oil 1,000 Mg Softgel] 1 cap PO QD cap 02/15/17 predniSONE Tab [Deltasone Tab] 40 mg PO DAILY #6 tab 04/11/17 - Patient Allergies Allergies/Adverse Reactions: Allergies Allergy/AdvReac Type Severity Reaction Status Date / Time BROMATINE Allergy Severe SHORTNESS Uncoded 04/11/17 14:53 OF BREATH Reglan AdvReac Intermediate ITCHING Uncoded 04/11/17 14:53 Past Medical History - heen HEENT History: Denies History Additional HEENT History: near sighted, wears glasses Cardiovascular History: Denies History Respiratory History: Other (please comment) Additional Respiratory History: "ASTHMATIC BRONCHITIS" Gastrointestinal History: Irritable Bowel Syndrome Genitourinary History: Kidney Stones Additional Genitourinary History: 3 YEARS AGO Endocrine History: Denies History Musculoskeletal History: Fibromyalgia, Back Pain, Joint Pain Prosthesis or Implant: Yes (L-4-L5 FUSION) Additional Musculoskeletal History: COMPLEX REGIONAL PAIN SYNDROME, MS Neurological History: Migraines, Motion Sickness Blood Disorders: Denies History Psychiatric History: Denies History History of Sexually Transmitted Diseases: No Cancer History: Skin Cancer Treatment / Date(s) of Treatment: SURG REMOVAL In Past Year Been Physically Harmed or Verbally Threatened: No History of MDRO: No History of Other Communicable Diseases: No Tobacco Use: Never Smoker Alcohol Use: Rarely Substance Use Type: None Previous Surgical History: Yes Type / Date of Surgery: TONSILLECTOMY. L4-L5 FUSION. TUBAL, UTERINE ABLATION. WISDOM TEETH. R ANKLE Anesthesia Reactions: Yes (PONV) Malignant Hyperthermia: No Significant Family History: No pertinent family hx Past Medical History Reviewed: Reviewed - No Changes ROS - Limitations ROS Limitations: No Limitations Constitution: DENIES: Chills, Fever Cardiovascular: REPORTS: Denies Cardiac Symptoms Respiratory: REPORTS: Denies Resp Symptoms Neurological: REPORTS: Headache (Mild), Tingling (Fingers both hands) Gastrointestinal: REPORTS: Denies GI Symptoms Eyes: REPORTS: Denies Symptoms ENT: REPORTS: Denies Symptoms Skin: DENIES: Rash General Adult Exam - General Appearance General Appearance: POSITIVE: Alert, Cooperative, No Acute Distress - HEENT HEENT: POSITIVE: Head Inspection Nml, Eyes Inspection Nml, Ears Inspection Nml, Pharynx Inspect. Nml - Neck Neck: POSITIVE: Normal Inspection. NEGATIVE: Lymphadenopathy - Respiratory Respiratory: POSITIVE: No Respiratory Distress, Breath Sounds Normal - Cardiovascular Cardiovascular: POSITIVE: Regular Rate & Rhythm, No Murmur - Abdomen Abdomen: Soft: (All Quadrants), Denies Tenderness: (All Quadrants), No Distention: (All Quadrants) - Skin Skin: POSITIVE: Normal Color, No Rash - Extremities Additional Extremities Details: Examination of her hands reveal no obvious abnormality possibly some increased erythema to the hands, good radial pulse bilaterally, good cap refill to the fingertips - Neurological / Psychological Neurological: POSITIVE: Oriented X3, Motor Normal, Sensation Normal General Adult Progress - Results Reviewed by me Lab Results Reviewed: Yes Lab Results:: Laboratory Results 04/11/17 Range/Units 15:08 WBC 7.90 (4.8-10.8) 10^3/uL RBC 4.91 (4.20-5.40) 10^6/uL Hgb 14.9 (12.0-16.0) g/dL Hct 43.5 (37.0-47.0) % MCV 88.6 (81-99) FL MCH 30.3 (27-31) PG MCHC 34.3 (33-37) g/dL RDW Std Deviation 40.0 (39-50) fL RDW Coeff of Maddie 12.7 (11.5-14.5) % Plt Count 316 (140-350) 10*3/uL MPV 9.9 (7.4-12.2) FL Immature Gran % (Auto) 0.3 (0-5) % Neut % (Auto) 79.7 (50-80) % Lymph % (Auto) 8.6 L (10-50) % Crowley % (Auto) 10.5 (5-15) % Eos % (Auto) 0.6 (0-8) % Baso % (Auto) 0.3 (0-1) % Immature Gran # (Auto) 0.02 10*3/UL Neut # (Auto) 6.30 10*3/UL Lymph # (Auto) 0.68 10*3/uL Crowley # (Auto) 0.83 H (0.3-0.8) 10*3/UL Eos # (Auto) 0.05 10*3/UL Baso # (Auto) 0.02 10*3/UL WBC Morphology Comment Normal morphology (NORM) Plt Morphology Comment Normal morphology (NORM) RBC Morph Comment Normal morphology (NORM) Sodium 142 (135-145) meq/L Potassium 3.5 L (3.8-5.2) meq/L Chloride 107 (98-112) meq/L Carbon Dioxide 22 L (23-33) meq/L Anion Gap 13 (5-20) BUN 9 (7-22) mg/dL Creatinine 0.7 (0.50-1.20) mg/dL Estimated GFR > 60 (>60 ml/min/1.73m(2)) BUN/Creatinine Ratio 12.85 (6-20) Glucose 119 H (78-110) mg/dL Calculated Osmolality 293.0 H (267-292) mOsm/kg Calcium 9.4 (8.7-10.7) mg/dL Magnesium 2.0 (1.6-2.4) mg/dL Total Bilirubin 0.7 (0.3-1.2) mg/dL AST 33 (8-39) IU/L ALT 73 H (9-52) IU/L Alkaline Phosphatase 74 (38-126) IU/L Total Protein 7.8 (6.1-8.0) g/dL Albumin 4.5 (3.5-4.8) g/dL Globulin 3.3 (2.50-4.10) g/dL Albumin/Globulin Ratio 1.30 (1.3-2.0) mg/g TSH 1.36 (0.2700-4.2000) uIU/mL - Patient's Progress MDM / ED Course: She did wash her hands again on arrival here. Vital signs are stable. She appears to be having some type of reaction to the woolite creel cleaner. An IV was established and she did receive Benadryl 25 mg IV. This did not seem to help much and she continued to have itching and burning pain in both of her hands and fingers. She subsequently received Toradol 15 mg IV as well as hydroxyzine 50 mg by mouth. She had a slight improvement however continue to have mostly pain in her hands and continued itching. She subsequently received Decadron 8 mg IV and morphine 2 mg IV after which she was finally starting to feel better. At this point it appears that she has had some type of reaction or allergic reaction to the chemical in the cleaning solution. She will be prescribed prednisone 40 mg daily for 3 additional days to start tomorrow. In addition she will continue hydroxyzine 25-50 mg every 4-6 hours as needed for itching. She will continue Tylenol or ibuprofen as needed for pain. She is advised return to the emergency room if any worsening or change in symptoms. - Consult Counseled: POSITIVE: Patient, Family, RE: Lab Results, RE: DX, RE: Need for F/U Patient Care Time - Estimated PCT Patient Care Time (In Minutes): 40 Vital Signs - Recent Vital Signs Vital Signs: Vital Signs (Last 8 hours) Temp Pulse Resp BP Pulse Ox 04/11/17 14:34 98 F 80 15 119/66 96 - VS Reviewed Vital Signs Reviewed: Yes Discharge Clinical Impression: Allergic reaction to chemical substance Discharge Disposition: Discharged to Home Condition: Stable Prescriptions / Orders: predniSONE Tab [Deltasone Tab] 40 mg PO DAILY #6 tab Additional Instructions: The symptoms of burning and itching to your hands most likely represents an allergic reaction or a chemical reaction to a component of the creel cleaner that was used prior to onset of symptoms. You have been prescribed prednisone 40 mg daily for 3 more days. In addition continue hydroxyzine 25 mg 1-2 every 4-6 hours as needed for itching. You can take Tylenol or ibuprofen as needed for pain. Return to the emergency room if increased itching or swelling, any worsening or change in symptoms. Recommend follow-up with primary care in 2-3 days. Follow Up With: DENILSON GALDAMEZ [Primary Care Provider] -
[2017-04-11] MEDS ORDERED: ONDANSETRON 4 MG/2 ML VIAL IVP ONE (16:58)
[2017-04-11] MEDS ORDERED: MORPHINE SULFATE 2 MG/1 ML IVP ONE (16:58)
[2017-04-11] MEDS ORDERED: DEXAMETHASONE PF 10 MG/1 ML VIAL IVP ONE (16:58)
== END 2017-04-11 17:50 | disposition home or self-care (01) ==
LOC: ER 14:34
DX: T50.995A Adverse effect of other drugs, medicaments and biological substances, initial encounter (principal); M79.641 Pain in right hand; M79.642 Pain in left hand; R51 Headache; G35 Multiple sclerosis
CPT/HCPCS: 80053; 83735; 84443; 85025; 96374; 96375; 99282; 99283; J1100; J1200; J1885; J2270; J2405; J7030

== ENCOUNTER 2017-05-16 06:50 | Emergency (ER) | payer BC ==
[2017-05-16 07:13] VITALS: RESP 18; TEMP 96.8
[2017-05-16] MEDS ORDERED: diphenhydrAMINE 50 MG/1 ML VIAL IVP ONE (07:14)
[2017-05-16] MEDS ORDERED: Sodium Chloride 0.9% 1,000 ML PRIMARY IV ONE (07:14)
[2017-05-16] MEDS ORDERED: DEXAMETHASONE PF 10 MG/1 ML VIAL IM ONE (07:14)
[2017-05-16] MEDS ORDERED: ONDANSETRON 4 MG/2 ML VIAL IVP ONE (07:14)
[2017-05-16] MEDS ORDERED: NORMAL SALINE 10 ML SYRINGE FLUSH IVP PRN (07:14)
[2017-05-16] MEDS ORDERED: KETOROLAC 30 MG/1 ML VIAL IVP ONE (07:14)
[2017-05-16] MEDS ORDERED: HYDROmorphone 2 MG/1 ML IVP ONE (08:01)
[2017-05-16] MEDS ORDERED: HYDROmorphone 2 MG/1 ML ONE (08:06)
--- NOTE | 2017-05-16 08:46 | PDOC ---
Headache HPI - General Chief Complaint: Head Problem / Injury Stated Complaint: segovia Date Seen by Provider: 05/16/17 Time Seen by Provider: 07:00 Source: POSITIVE: Patient Exam Limitations: POSITIVE: No limitations Nurse's Notes Reviewed & Considered: Yes - History of Present Illness Initial Comments: The patient is a 37-year-old female. She states that she has had a "migraine headache "intermittently for the past 2 weeks. Patient states that her headache became more persistent and severe this morning. She started vomiting this morning. Patient states that she has had migraine headaches "since puberty ". She's under the care of Dr. Kamara, a neurologist in [place]. She states that in August she was diagnosed with multiple sclerosis on the basis of an MRI scan and lumbar puncture. Patient is on amitriptyline and gabapentin for her chronic headaches. She states her present headache is somewhat more severe than previous headaches. She also states that the location of her headache is more circumferential; usually her headaches are right-sided. She has her usual photophobia. Body Location Affected: REPORTS: Head Timing: REPORTS: Constant Duration: >24 hours Severity: Severe Quality: REPORTS: "Pain", Throbbing Context: DENIES: CO Exposure, Tick Bite, Insect Bite, Recent Head Injury, Other Associated Symptoms: REPORTS: Sensitivity to Light. DENIES: Fever, Chills, Sweating, Problems with Vision, Visual Disturb Preceding, [place] Preceding, Typical of Prior Aura(s), Nausea, Vomiting, Neck Pain, Stiffness, Speech Problems, Weakness, Trouble Walking, Tingling, Numbness, Dizziness, Lightheadedness, Other Exacerbated by: REPORTS: Light Any Prior Injuries Related to Current Complaint?: No - Patient Home Medications Home Medications: Home Medications Albuterol Sulfate [Proair Hfa] 2 puff INH Q4-6H #1 inh 11/22/15 Gabapentin 600 mg PO TID 06/02/16 Cholecalciferol (Vitamin D3) [Vitamin D3] 5 cap PO DAILY cap 09/15/16 Cyanocobalamin (Vitamin B-12) [Vitamin B12] 2,500 mcg PO DAILY tab 09/15/16 Fingolimod HCl [Gilenya] 0.5 mg PO DAILY cap 09/15/16 Ketorolac Tromethamine [Sprix] 1 each NS PRN PRN spray 11/15/16 Sumatriptan 5 mg IN PRN PRN spr 09/15/16 Methylphenidate HCl 5 mg PO BID 12/21/16 Hydroxyzine HCl 25 mg PO DAILY 01/26/17 Zolpidem Tartrate 5 mg PO BEDTIME 01/26/17 Biotin 1 cap PO QD cap 02/15/17 Flaxseed Oil [Flaxseed] 1 cap PO QD cap 02/15/17 [place]-3/Dha/Epa/Fish Oil [Fish Oil 1,000 Mg Softgel] 1 cap PO QD cap 02/15/17 Amoxicillin/Potassium Clav [Augmentin 875-125 Tablet] 1 tab PO Q12H #20 tab Dalfampridine [Ampyra] 10 mg PO Q12H tab 05/13/17 Diazepam 2 mg PO BID tab 05/13/17 Hydrocodone/Acetaminophen [Vicodin 5-300 Mg Tablet] 1 tab PO PRN tab 05/13/17 Meloxicam 1 tab PO DAILY tab 05/13/17 - Patient Allergies Allergies/Adverse Reactions: Allergies Allergy/AdvReac Type Severity Reaction Status Date / Time BROMATINE Allergy Severe SHORTNESS Uncoded 05/16/17 06:59 OF BREATH Reglan AdvReac Intermediate ITCHING Uncoded 05/16/17 06:59 Past Medical History - heen HEENT History: Denies History Additional HEENT History: near sighted, wears glasses Cardiovascular History: Denies History Respiratory History: Other (please comment) Additional Respiratory History: "ASTHMATIC BRONCHITIS" Gastrointestinal History: Irritable Bowel Syndrome Genitourinary History: Kidney Stones Additional Genitourinary History: 3 YEARS AGO Endocrine History: Denies History Musculoskeletal History: Fibromyalgia, Back Pain, Joint Pain Prosthesis or Implant: Yes (L-4-L5 FUSION) Additional Musculoskeletal History: COMPLEX REGIONAL PAIN SYNDROME, MS Neurological History: Migraines, Motion Sickness Blood Disorders: Denies History Psychiatric History: Denies History History of Sexually Transmitted Diseases: No Cancer History: Skin Cancer Treatment / Date(s) of Treatment: SURG REMOVAL In Past Year Been Physically Harmed or Verbally Threatened: No History of MDRO: No History of Other Communicable Diseases: No Tobacco Use: Former Smoker Alcohol Use: Rarely Substance Use Type: None Previous Surgical History: Yes Type / Date of Surgery: TONSILLECTOMY. L4-L5 FUSION. TUBAL, UTERINE ABLATION. WISDOM TEETH. R ANKLE Anesthesia Reactions: Yes (PONV) Malignant Hyperthermia: No Significant Family History: No pertinent family hx Past Medical History Reviewed: Reviewed - No Changes ROS - Limitations ROS Limitations: No Limitations Constitution: REPORTS: Denies Symptoms Cardiovascular: REPORTS: Denies Cardiac Symptoms Respiratory: REPORTS: Denies Resp Symptoms Neurological: REPORTS: Headache Gastrointestinal: REPORTS: Nausea, Vomitting Endocrine: REPORTS: Denies Symptoms Musculoskeletal: REPORTS: Denies MS Symptoms Genitourinary: REPORTS: Denies Symptoms Eyes: REPORTS: Other (Photophobia) ENT: REPORTS: Denies Symptoms Skin: REPORTS: Denies Skin Symptoms Lympathic: REPORTS: Denies Lympathic Symptoms Immunologic: POSITIVE: Denies Symptoms Psychiatric: POSITIVE: Denies Psych Symptoms Headache Exam - General Appearance General Appearance: POSITIVE: Alert, Cooperative, No Evidence of Trauma, Moderate Distress (Due to headache). NEGATIVE: No Acute Distress - HEENT Head / Face: POSITIVE: Atraumatic, Normal Inspection, No Facial Swelling Eyes: POSITIVE: Inspection Normal, PERRL, EOM's Intact, Eyelids Uninjured, Conjunctivae Uninjured, No Nystagmus, No Globe Trauma, Sclera Normal, Normal Corneal Inspection, Normal Fundoscopic Exam, Ant. Chamber Nml Inspect., No Papilledema Ears: POSITIVE: Ears Normal Inspection, TM Normal Inspection, Auricle Normal, External Canal Normal Nose: POSITIVE: Inspection Normal, No Apparent Trauma, Nares Normal, No CSF Leak Oropharynx: POSITIVE: External Inspection Nml, Pharynx Inspect. Nml, Airway Intact, Voice Normal, Moist Mucous Membranes, No Oral Injury, Lips Normal, Gums Normal, No Drooling, No Thrush, Normal Gag Reflex Dental: POSITIVE: No Dental Injury - Pupil Size Pupil Size: 4 mm: Bilateral (PERRLA) - Neck Neck: POSITIVE: Normal Inspection, Supple - Respiratory / CVS Respiratory / CVS: POSITIVE: Chest Non-Tender, No Respiratory Distress, Heart Sounds Normal, Regular Rate/Rhythm, Breath Sounds Normal Peripheral Pulses: Radial (R): 2+, Radial (L): 2+ - Abdomen Abdomen: Soft: (All Quadrants), Normal Bowel Sounds: (All Quadrants), Denies Tenderness: (All Quadrants), No Splenomegaly: (All Quadrants), No Hepatomegaly: (All Quadrants), No Guarding: (All Quadrants), No Rebound: (All Quadrants), No Palpable Pulse: (All Quadrants), No Palpabale Mass: (All Quadrants), No Distention: (All Quadrants), No Rigidity: (All Quadrants) - Skin Skin: POSITIVE: Intact, Normal Palpation - Extremities Extremity: Non-Tender: (All Extremities), Normal ROM: (All Extremities), Normal Inspection: (All Extremities) - Neuro / Psych Higher Functions: POSITIVE: Alert, Oriented x3, Normal Speech, Mood Appropriate , Affect Appropriate Cranial Nerves: POSITIVE: Normal As Tested, No Evidence of Acute CVA Cerebellar: POSITIVE: Normal As Tested Sensorimotor: POSITIVE: No Motor Deficits, No Sensory Deficits, Reflexes Normal Images - Head Head: 1 - Distribution of headache 2 - Distribution of headache 3 - Area of most severe headache Headache Progress - Patient's Progress Pain Medication Addressed: POSITIVE: Yes (Patient given a liter of normal saline with 30 mg of Toradol, 50 mg of Benadryl and 4 mg of Zofran IV. Patient states she's had no relief from her headache following this. Patient then given 2 mg of Dilaudid and was started on 100% oxygen and was given 10 mg of dexamethasone IV. CT scan ordered and 2 mg of magnesium sulfate ordered. Patient's care turned over to Dr. Rodrigues at 0845.) School/Work Release Addressed: POSITIVE: Not Applicable Re-Examine Time:: 08:40 Re-Examine Comment: Patient given a liter of normal saline with 30 mg of Toradol , 50 mg of Benadryl and 4 mg of Zofran with no improvement. Patient then given 2 mg of Dilaudid and 10 mg of Decadron IV no started on 100% oxygen. CT scan of head ordered. 2 g of magnesium sulfate ordered. Care turned over to Dr. Rodrigues. Status: POSITIVE: Unchanged - Consult Counseled: POSITIVE: Patient Patient Care Time - Estimated PCT Patient Care Time (In Minutes): 45 Vital Signs - Recent Vital Signs Vital Signs: Vital Signs (Last 8 hours) Temp Pulse Resp BP Pulse Ox 05/16/17 07:06 96.8 F 76 18 149/93 96 - VS Reviewed Vital Signs Reviewed: Yes Discharge Clinical Impression: Headache Discharge Disposition: Other (Care transferred to Dr. Rodrigues, emergency physician coming on duty at 0849) Condition: Fair Care Transferred To: Dr. Rodrigues, 0840
[2017-05-16] MEDS ORDERED: Magnesium Sulfate 2gm (Premix) 2 GM in Premix 1 BAG IV ONE (08:49)
--- NOTE | 2017-05-16 09:25 | PDOC ---
Transfer of Care - Care Accepted Time Care Transferred: 08:30 MDM / ED Course: This patient came in to the emergency department today with chief complaint of worst headache of her life. I have assumed care of this patient at the end of Dr. Sharma's shift while awaiting results of CT scan. Patient has received Toradol, Decadron, Zofran, Dilaudid, and normal saline. She was placed on high flow oxygen and her headache has minimally improved. At the end of Dr. Sharma' s shift he ordered 2 g of magnesium sulfate and a CT scan which are pending at this time. Home Medications: Home Medications Albuterol Sulfate [Proair Hfa] 2 puff INH Q4-6H #1 inh 11/22/15 Gabapentin 600 mg PO TID 06/02/16 Cholecalciferol (Vitamin D3) [Vitamin D3] 5 cap PO DAILY cap 09/15/16 Cyanocobalamin (Vitamin B-12) [Vitamin B12] 2,500 mcg PO DAILY tab 09/15/16 Fingolimod HCl [Gilenya] 0.5 mg PO DAILY cap 09/15/16 Ketorolac Tromethamine [Sprix] 1 each NS PRN PRN spray 09/15/16 Sumatriptan 5 mg IN PRN PRN spr 09/15/16 Methylphenidate HCl 5 mg PO BID 12/21/16 Hydroxyzine HCl 25 mg PO DAILY 01/26/17 Zolpidem Tartrate 5 mg PO BEDTIME 01/26/17 Biotin 1 cap PO QD cap 02/15/17 Flaxseed Oil [Flaxseed] 1 cap PO QD cap 02/15/17 [place]-3/Dha/Epa/Fish Oil [Fish Oil 1,000 Mg Softgel] 1 cap PO QD cap 02/15/17 Amoxicillin/Potassium Clav [Augmentin 875-125 Tablet] 1 tab PO Q12H #20 tab Dalfampridine [Ampyra] 10 mg PO Q12H tab 05/13/17 Diazepam 2 mg PO BID tab 05/13/17 Hydrocodone/Acetaminophen [Vicodin 5-300 Mg Tablet] 1 tab PO PRN tab 05/13/17 Meloxicam 1 tab PO DAILY tab 05/13/17 Allergies/Adverse Reactions: Allergies BROMATINE Allergy (Severe, Uncoded 05/16/17 06:59) SHORTNESS OF BREATH Resp. distress Reglan Adverse Reaction (Intermediate, Uncoded 05/16/17 06:59) ITCHING Restlessness/aggitation/anxiety Vital Signs Reviewed: Yes Nurse's Notes Reviewed & Considered: Yes - Pending Patient Care Items Pending Patient Care Items: POSITIVE: Pain Control, CT / MRI Results - Expected Patient Outcome Tentative Impression of Patient: Migraine headache refractory to treatment. Patient recently diagnosed with MS this may possibly play a role. Expected Disposition: POSITIVE: Home Expected Disposition of Patient: My expectation for this patient is improvement of her migraine headache and then discharge home. Follow up with her primary care physician. - Re-Evaluation of Patient Re-Examine Time:: 10:51 (patient is minimally improved, wishes to be discharged home.) Disposition of Patient: POSITIVE: Discharged Counseled: POSITIVE: Patient, Family, RE: Radiology Results, RE: DX, RE: Need for F/U Pending Test Results Documented: Yes (CT scan head per my interpretation, no acute intracranial abnormality.) Clinical Impression Documented: Yes (migraine headache.) Patient Care Time - Estimated PCT Patient Care Time (In Minutes): 30 Vital Signs - Recent Vital Signs Vital Signs: Vital Signs (Last 8 hours) Temp Pulse Resp BP Pulse Ox 05/16/17 07:06 96.8 F 76 18 149/93 96 Discharge Clinical Impression: Headache Discharge Disposition: Discharged to Home Condition: Fair Patient Instructions Given at Discharge: Migraine Headache (ED) Follow Up With: DENILSON GALDAMEZ [Primary Care Provider] -
[2017-05-16] MEDS ORDERED: Acetaminophen 1000mg Inj 1,000 MG in Premix 1 BAG IV ONE (10:04)
[2017-05-16] MEDS ORDERED: PROMETHAZINE 25 MG/1 ML VIAL IM ONE (10:04)
--- NOTE | 2017-05-16 10:42 | DI ---
HISTORY: Severe migraine headache encompassing entire head. COMPARISON: 12/21/16 MRI. TECHNIQUE: Multiple helically acquired CT images are obtained through the brain without contrast. FINDINGS: Examination demonstrates normal, symmetric ventricles and other CSF containing spaces. There is no evidence of mass lesion, hemorrhage nor midline shift. Surrounding soft tissue and osseous structures are unremarkable. IMPRESSION: 1. Normal CT of the head.
== END 2017-05-16 11:07 | disposition home or self-care (01) ==
LOC: ER 06:50
DX: G43.009 Migraine without aura, not intractable, without status migrainosus (principal); H53.143 Visual discomfort, bilateral; R11.2 Nausea with vomiting, unspecified
CPT/HCPCS: 70450; 96365; 96372; 96375; 99283 ×2; J0131; J1200; J1885; J2405; J2550; J1100; J1170; J3475; J7030

== ENCOUNTER → 2017-06-10 | Outpatient (CLI) | payer BC ==
--- NOTE | 2017-06-10 09:37 | DI ---
XR HAND MIN 3VW,06/10/2017 9:04 AM: Clinical History: Left hand pain Previous Exam: May 06, 2015 Findings: 3 views of the left hand are obtained, and demonstrate anatomic alignment without fractures. Impression: No fracture.
--- NOTE | 2017-06-10 10:37 | DI ---
XR WRIST COMPLETE MIN 3VW,06/10/2017 9:04 AM: Clinical History: Left wrist pain Previous Exam: None at this facility. Findings: 3 views the left wrist are obtained, and demonstrate anatomic alignment without fractures. The surrou nding soft tissues are unremarkable. Impression: Normal left wrist.
--- NOTE | 2017-06-10 10:38 | DI ---
XR ELBOW COMPLETE MIN 3VW,06/10/2017 9:04 AM: Clinical History: Left elbow pain. Previous Exam: Mar 23 2008 contralateral elbow. Findings: 3 views the left elbow are obtained, and demonstrate anatomic alignment without fractures. The surrou nding soft tissues are unremarkable. There is no elbow joint effusion. Impression: No fracture. If concern for occult fracture recommend follow up in 7-10 days.
== END ==
LOC: MOB RAD 09:08
PROVIDERS: ATTEND Physician Assistant
DX: M79.642 Pain in left hand (principal); M25.532 Pain in left wrist; M25.522 Pain in left elbow; W18.39XA Other fall on same level, initial encounter; Y92.010 Kitchen of single-family (private) house as the place of occurrence of the external cause
CPT/HCPCS: 73080; 73110; 73130

== ENCOUNTER 2017-06-14 15:32 | Emergency (ER) | payer BC ==
[2017-06-14] MEDS ORDERED: KETOROLAC 30 MG/1 ML VIAL IVP ONE (16:01)
[2017-06-14] MEDS ORDERED: NORMAL SALINE 10 ML SYRINGE FLUSH IVP PRN (16:01)
[2017-06-14] MEDS ORDERED: ONDANSETRON 4 MG/2 ML VIAL IVP ONE (16:01)
[2017-06-14] MEDS ORDERED: diphenhydrAMINE 50 MG/1 ML VIAL IVP ONE (16:01)
[2017-06-14] MEDS ORDERED: Sodium Chloride 0.9% 1,000 ML PRIMARY IV ONE (16:01)
[2017-06-14] MEDS ORDERED: DEXAMETHASONE PF 10 MG/1 ML VIAL IM ONE (16:01)
[2017-06-14 16:10] VITALS: RESP 16; TEMP 96.7
[2017-06-14] MEDS ORDERED: HYDROmorphone 2 MG/1 ML IVP ONE (17:19)
--- NOTE | 2017-06-14 23:33 | PDOC ---
Headache HPI - General Chief Complaint: Nausea / Vomiting / Diarrhea Stated Complaint: migraine headache Date Seen by Provider: 06/14/17 Time Seen by Provider: 15:50 Source: POSITIVE: Patient Exam Limitations: POSITIVE: No limitations Nurse's Notes Reviewed & Considered: Yes - History of Present Illness Initial Comments: The patient is a 37-year-old female. She states that for the past day she has had a "migraine headache". She's had associated nausea and vomiting. Patient states that she has had migraine headaches all of her adult life. She also has a history of multiple sclerosis. She is under the care of a neurologist in [place] for both her multiple sclerosis and migraine headaches. Her headaches have been very difficult to control and states he gets headaches every month or so. She is on gabapentin, sumatriptan and Toradol for her migraines. Present headache is identical to the previous episodes that she's had ever since she was an adolescent. No history of recent head trauma. No fevers or chills. No focal neurologic symptoms. Body Location Affected: REPORTS: Head Timing: REPORTS: Constant, Gradual Duration: >24 hours (3 days) Severity: Moderate Quality: REPORTS: "Pain", Throbbing Context: DENIES: CO Exposure, Tick Bite, Insect Bite, Recent Head Injury, Other Associated Symptoms: REPORTS: Sensitivity to Light, Nausea, Vomiting. DENIES: Fever, Chills, Sweating, Problems with Vision, Visual Disturb Preceding, [place] Preceding, Typical of Prior Aura(s), Neck Pain, Stiffness, Speech Problems, Weakness, Trouble Walking, Tingling, Numbness, Dizziness, Lightheadedness, Other Exacerbated by: REPORTS: Light (Mildly) Any Prior Injuries Related to Current Complaint?: No - Patient Home Medications Home Medications: Home Medications Albuterol Sulfate [Proair Hfa] 2 puff INH Q4-6H #1 inh 11/22/15 Gabapentin 600 mg PO TID 06/02/16 Cholecalciferol (Vitamin D3) [Vitamin D3] 5 cap PO DAILY cap 09/15/16 Cyanocobalamin (Vitamin B-12) [Vitamin B12] 2,500 mcg PO DAILY tab 09/15/16 Ketorolac Tromethamine [Sprix] 1 each NS PRN PRN spray 09/15/16 Sumatriptan 5 mg IN PRN PRN spr 09/15/16 Methylphenidate HCl 5 mg PO BID 12/21/16 Hydroxyzine HCl 25 mg PO DAILY 01/26/17 Zolpidem Tartrate 5 mg PO BEDTIME 01/26/17 Biotin 1 cap PO QD cap 02/15/17 Flaxseed Oil [Flaxseed] 1 cap PO QD cap 02/15/17 [place]-3/Dha/Epa/Fish Oil [Fish Oil 1,000 Mg Softgel] 1 cap PO QD cap 02/15/17 Dalfampridine [Ampyra] 10 mg PO Q12H tab 05/13/17 Diazepam 2 mg PO BID tab 05/13/17 Hydrocodone/Acetaminophen [Vicodin 5-300 Mg Tablet] 1 tab PO PRN tab 05/13/17 Meloxicam 1 tab PO DAILY tab 05/13/17 Fingolimod HCl [Gilenya] 0.5 mg PO DAILY cap 06/10/17 - Patient Allergies Allergies/Adverse Reactions: Allergies Allergy/AdvReac Type Severity Reaction Status Date / Time modafinil AdvReac NOT Verified 06/14/17 15:54 APPLICABLE nitrofurantoin AdvReac NOT Verified 06/14/17 15:54 [From Macrobid] APPLICABLE nitrofurantoin AdvReac NOT Verified 06/14/17 15:54 macrocrystalline APPLICABLE [From Macrobid] BROMATINE Allergy Severe SHORTNESS Uncoded 06/14/17 15:54 OF BREATH Reglan AdvReac Intermediate ITCHING Uncoded 06/14/17 15:54 Past Medical History - heen HEENT History: Denies History Additional HEENT History: near sighted, wears glasses Cardiovascular History: Denies History Respiratory History: Other (please comment) Additional Respiratory History: "ASTHMATIC BRONCHITIS" Gastrointestinal History: Irritable Bowel Syndrome Genitourinary History: Kidney Stones Additional Genitourinary History: 3 YEARS AGO Endocrine History: Denies History Musculoskeletal History: Fibromyalgia, Back Pain, Joint Pain Prosthesis or Implant: Yes (L-4-L5 FUSION) Additional Musculoskeletal History: COMPLEX REGIONAL PAIN SYNDROME, MS Neurological History: Migraines, Multiple Sclerosis, Motion Sickness Blood Disorders: Denies History Psychiatric History: Denies History History of Sexually Transmitted Diseases: No Female Reproductive History: Other (please comment) Additional Female Reproductive History: UTERINE ABLATION, TUBAL LIGATION Cancer History: Skin Cancer Treatment / Date(s) of Treatment: SURG REMOVAL In Past Year Been Physically Harmed or Verbally Threatened: No (PER PATIENT) History of MDRO: No History of Other Communicable Diseases: No Tobacco Use: Never Smoker Alcohol Use: None Substance Use Type: None Previous Surgical History: Yes Type / Date of Surgery: TONSILLECTOMY. L4-L5 FUSION. TUBAL LIGATION, UTERINE ABLATION. WISDOM TEETH. R ANKLE Anesthesia Reactions: Yes (PONV) Malignant Hyperthermia: No Family History of Malignant Hyperthermia: No Significant Family History: No pertinent family hx Past Medical History Reviewed: Reviewed - No Changes ROS - Limitations ROS Limitations: No Limitations Constitution: REPORTS: Denies Symptoms Cardiovascular: REPORTS: Denies Cardiac Symptoms Respiratory: REPORTS: Denies Resp Symptoms Neurological: REPORTS: Headache Gastrointestinal: REPORTS: Nausea, Vomitting Endocrine: REPORTS: Denies Symptoms Musculoskeletal: REPORTS: Denies MS Symptoms Genitourinary: REPORTS: Denies Symptoms Eyes: REPORTS: Denies Symptoms ENT: REPORTS: Denies Symptoms Skin: REPORTS: Denies Skin Symptoms Lympathic: REPORTS: Denies Lympathic Symptoms Immunologic: POSITIVE: Denies Symptoms Psychiatric: POSITIVE: Denies Psych Symptoms Headache Exam - General Appearance General Appearance: POSITIVE: Alert, Cooperative, No Acute Distress, No Evidence of Trauma - HEENT Head / Face: POSITIVE: Atraumatic, Normal Inspection, No Facial Swelling Eyes: POSITIVE: Inspection Normal, PERRL, EOM's Intact, Eyelids Uninjured, Conjunctivae Uninjured, No Nystagmus, No Globe Trauma, Sclera Normal, Normal Fundoscopic Exam, No Papilledema Ears: POSITIVE: Ears Normal Inspection, TM Normal Inspection, Auricle Normal, External Canal Normal Nose: POSITIVE: Inspection Normal, No Apparent Trauma, Nares Normal, No CSF Leak Oropharynx: POSITIVE: External Inspection Nml, Pharynx Inspect. Nml, Airway Intact, Voice Normal, Moist Mucous Membranes, No Oral Injury, Lips Normal, Gums Normal, No Drooling, No Thrush, Normal Gag Reflex Dental: POSITIVE: No Dental Injury - Pupil Size Pupil Size: 3 mm: Bilateral (PERRLA) - Neck Neck: POSITIVE: Normal Inspection, Supple - Respiratory / CVS Respiratory / CVS: POSITIVE: Chest Non-Tender, No Respiratory Distress, Heart Sounds Normal, Regular Rate/Rhythm, Breath Sounds Normal Peripheral Pulses: Radial (R): 2+, Radial (L): 2+ - Abdomen Abdomen: Soft: (All Quadrants), Normal Bowel Sounds: (All Quadrants), Denies Tenderness: (All Quadrants), No Splenomegaly: (All Quadrants), No Hepatomegaly: (All Quadrants), No Guarding: (All Quadrants), No Rebound: (All Quadrants), No Palpable Pulse: (All Quadrants), No Palpabale Mass: (All Quadrants), No Distention: (All Quadrants), No Rigidity: (All Quadrants) - Skin Skin: POSITIVE: Intact, Normal Palpation - Extremities Extremity: Non-Tender: (All Extremities), Normal ROM: (All Extremities), Normal Inspection: (All Extremities) - Neuro / Psych Higher Functions: POSITIVE: Alert, Oriented x3, Normal Speech, Mood Appropriate , Affect Appropriate Cranial Nerves: POSITIVE: Normal As Tested, No Evidence of Acute CVA Cerebellar: POSITIVE: Normal As Tested Sensorimotor: POSITIVE: No Motor Deficits, No Sensory Deficits, Reflexes Normal Images - Head Head: 1 - Circumferential headache with some scalp tenderness on compression 2 - Circumferential headache with some tenderness on compression Headache Progress - Patient's Progress Pain Medication Addressed: POSITIVE: Yes (Patient given a liter of normal saline with 30 mg of ketorolac, 4 mg of Zofran and 50 mg of Benadryl without much effect. Patient then given Dilaudid 2 mg IV with partial relief of headache.) School/Work Release Addressed: POSITIVE: Not Applicable Re-Examine Time:: 17:20 Re-Examine Comment: Patient given a liter of normal saline, 30 mg of ketorolac IV, 4 mg of Zofran IV and 50 mg of Benadryl IV without much effect on her headache. Patient then given 2 mg of Dilaudid with partial relief. Status: POSITIVE: Improved, Re-Examined, Pain Relieved - Consult Counseled: POSITIVE: Patient, RE: DX, RE: Need for F/U Patient Care Time - Estimated PCT Patient Care Time (In Minutes): 45 Vital Signs - Recent Vital Signs Vital Signs: Vital Signs (Last 8 hours) Temp Pulse Resp BP Pulse Ox 06/14/17 15:32 96.7 F L 86 16 131/74 95 - VS Reviewed Vital Signs Reviewed: Yes Discharge Clinical Impression: Migraine Discharge Disposition: Discharged to Home Condition: Stable Patient Instructions Given at Discharge: Migraine Headache (ED) Additional Instructions: Rest tonight. Continue present medications. Follow-up with your neurologist. Return here as necessary. Follow Up With: DENILSON GALDAMEZ [Primary Care Provider] - (Instructions as above. Follow-up with your neurologist. Return here as necessary.)
== END 2017-06-14 18:15 | disposition home or self-care (01) ==
LOC: ER 15:32
DX: G43.009 Migraine without aura, not intractable, without status migrainosus (principal); R11.2 Nausea with vomiting, unspecified; G35 Multiple sclerosis
CPT/HCPCS: 96361; 96374; 96375; 99282; 99283; J1100; J1170; J1200; J1885; J2405; J7030

== ENCOUNTER → 2017-06-24 | Outpatient (CLI) | payer BC ==
[~2017-06-24] MED LIST changes: +LIDOCAINE W/ SODIUM BICARB 0.5 ML SYR ONE; -LIDOCAINE W/ SODIUM BICARB 0.5 ML SYR SUBD ONE; -NORMAL SALINE 10 ML SYRINGE FLUSH IVP ONE
--- NOTE | 2017-06-24 21:08 | DI ---
MRI LUMBAR SPINE SCAN WITHOUT AND WITH IV CONTRAST, 06/24/2017 1:07 PM: Clinical History: Right leg weakness and pain. Previous Exam: 07/07/2016. Sequences: Pre and post contrast sagittal and axial T1 and T2 weighted scans. Contrast Dose: 20 mL of ProHance (279.3 mg/mL) The vertebral bodies are of normal height and size. The patient is status post anterior and posterior fusions at L4-5 and L5-S1. The anterior fusions are solid. Posterior fusions are accomplished with m etallic struts transfixed with pedicle screws. This metallic hardware causes substantial artifacts. T he remaining disc spaces are of normal height and they show modest desiccation change. The cord termi nates at L1, and the conus medullaris is normal. The disc spaces from T10-11 through T12-L1 are norm al. L1-2 through L3-4 have a circumferentially bulging but not herniated discs without canal or neura l foraminal stenosis. There is no canal or neural foraminal stenosis at L4-5. Extensive metallic mary facts are present at the L5-S1 level but there does not appear to be any canal or neural foraminal st enosis. There are laminectomies at L4 and L5 and the postcontrast scans show minimal enhancement arou nd the posterior and lateral margins of the thecal sac consistent with scar formation. There is no "c lumping" of the nerve roots at L4-5 and L5-S1 to suggest arachnoiditis. Readin. Status post L4 and L5 laminectomies with anterior and posterior fusions at L4-5 and L5-S1. The an terior fusions are solid. There are artifacts generated by the metallic hardware at L4-5 and L5-S1. T here is no canal or neural foraminal stenosis at either of these levels. There is no evidence of a re current disc herniation at either level. 2. There are bulging but not herniated discs without canal or neural foraminal stenosis from L1-2 th rough L3-4. 3. The disc spaces from T10-11 through T12-L1 are normal.
== END ==
LOC: MRI 12:55
PROVIDERS: ATTEND Physician Assistant
DX: M54.41 Lumbago with sciatica, right side (principal); G35 Multiple sclerosis; M79.604 Pain in right leg; M47.816 Spondylosis without myelopathy or radiculopathy, lumbar region
CPT/HCPCS: 72158